=== PATIENT | female | born 1995 | race Caucasian/White ===

== ENCOUNTER 2020-03-25 06:44 | Emergency (ER) | payer MEDICAID ==
[~2020-03-25] VITALS: Ht 154.9 cm; Wt 90.0 kg
[2020-03-25 06:46] VITALS: BP 132/80
[2020-03-25] MEDS ORDERED: ONDANSETRON HCL 4MG/2ML INJ IV STA (07:16)
[2020-03-25] MEDS ORDERED: KETOROLAC 30MG/ML VIAL IV STA (07:16)
[2020-03-25 07:33] LABS: BASOPHILS % 0.9 % (0.0-2.0); EOSINOPHILS % 1.9 % (0.0-5.0); HEMATOCRIT. 39.5 % (36.0-48.0); HEMOGLOBIN. 13.6 g/dL (12.0-16.0); LYMPHOCYTES % 19.5 % (20.0-50.0); MEAN CORPUSCULAR HEMOGLOBIN 28.5 pg (28.0-32.0); MEAN CORPUSCULAR VOLUME 82.4 fL (81.0-99.0); MEAN PLATELET VOLUME 8.2 fl (7.4-10.4); MONOCYTES % 6.4 % (2.0-8.0); NEUTROPHILS % 71.3 % (40.0-76.0); PLATELET 347 x1000/uL (130-400); RED BLOOD CELL COUNT 4.79 mill/uL (4.2-5.4)
[2020-03-25 07:36] LABS: CHLORIDE 104 mEq/L (98-107)
[2020-03-25 07:43] LABS: PROTHROMBIN TIME 10.9 sec (9.6-11.0)
[2020-03-25 07:45] LABS: HCG SCREEN NEGATIVE
[2020-03-25] MEDS ORDERED: IBUP-2029 MT (08:34)
[2020-03-25] MEDS ORDERED: OXYC-100 MT (08:34)
[2020-03-25 08:46] LABS: CLARITY URINE CLEAR (CLEAR); COLOR URINE YELLOW (YELLOW); KETONES URINE NEGATIVE (NEGATIVE); LEUKOCYTE ESTERASE URINE 3+ (NEGATIVE); NITRITE URINE NEGATIVE (NEGATIVE); OCCULT BLOOD URINE NEGATIVE (NEGATIVE); PROTEIN URINE NEGATIVE (NEGATIVE); UROBILINOGEN URINE 0.2 E.U./dL (0.2-1.0)
== END 2020-03-25 08:55 | disposition home or self-care (01) ==
LOC: ER 07:39
DX: K80.20 Calculus of gallbladder without cholecystitis without obstruction (principal); E11.9 Type 2 diabetes mellitus without complications; Z88.0 Allergy status to penicillin
CPT/HCPCS: 36415; 76705; 80053; 81003; 81025; 83690; 84703; 85025; 85610; 87086; 93005; 96374; 96375; 99285; J1885; J2405

== ENCOUNTER 2024-07-23 06:03 | Emergency (ER) | payer MEDICAID ==
[~2024-07-23] VITALS: Ht 157.5 cm; Wt 83.0 kg
[~2024-07-23 06:03] MED LIST: IBUP-2029 MT; OXYC-100 MT
[2024-07-23 06:21] VITALS: O2SAT 100
[2024-07-23 07:25] LABS: BASOPHILS % 0.2 % (0.0-2.0); EOSINOPHILS % 0.8 % (0.0-5.0); HEMOGLOBIN. 13.4 g/dL (12.0-16.0); LYMPHOCYTES % 18.3 % (20.0-50.0); MEAN CORPUSCULAR HEMOGLOBIN 27.7 pg (28.0-32.0); MEAN CORPUSCULAR HGB CONC 33.5 g/dL (31.0-37.0); MEAN CORPUSCULAR VOLUME 82.5 fL (81.0-99.0); MEAN PLATELET VOLUME 7.8 fl (7.4-10.4); MONOCYTES % 6.2 % (2.0-8.0); NEUTROPHILS % 74.5 % (40.0-76.0); PLATELET 397 x1000/uL (130-400); RED BLOOD CELL COUNT 4.85 mill/uL (4.2-5.4); RED CELL DISTRIBUTION WIDTH 13.9 % (11.6-14.6); WHITE BLOOD COUNT 9.2 x1000/uL (4.5-11.0)
[2024-07-23 07:46] LABS: CHLORIDE 105 mEq/L (98-107); POTASSIUM 4.1 mEq/L (3.5-5.1); SODIUM 139 mEq/L (136-145)
[2024-07-23 07:47] LABS: CARBON DIOXIDE 28 mEq/L (21-32)
[2024-07-23 07:48] LABS: CALCIUM 9.8 mg/dL (8.7-10.4)
[2024-07-23 07:52] LABS: CREATININE 0.7 mg/dL (0.6-1.0)
[2024-07-23 07:53] LABS: GLUCOSE 116 mg/dL (70-105); UREA NITROGEN BLOOD 13 mg/dL (9-23)
[2024-07-23 12:11] LABS: HCG SCREEN NEGATIVE
[2024-07-23 12:36] LABS: CLARITY URINE CLEAR (CLEAR); COLOR URINE YELLOW (YELLOW); GLUCOSE URINE NEGATIVE (NEGATIVE); KETONES URINE 2+ (NEGATIVE); LEUKOCYTE ESTERASE URINE TRACE (NEGATIVE); NITRITE URINE NEGATIVE (NEGATIVE); OCCULT BLOOD URINE NEGATIVE (NEGATIVE); PH URINE 5.5 (4.5-8.0); PROTEIN URINE NEGATIVE (NEGATIVE); SPECIFIC GRAVITY URINE 1.014 (1.005-1.030); UROBILINOGEN URINE 0.2 E.U./dL (0.2-1.0)
[2024-07-23 12:56] LABS: BACTERIA URINE 2+; RBC URINE 0-2 /hpf (0-2); SQUAMOUS EPITHELIAL CELL URINE 1+ /lpf (RARE/1+); YEAST URINE NONE SEEN
[2024-07-23 14:11] LABS: ALANINE AMINOTRANSFERASE 51 IU/L (10-49)
[2024-07-23 14:12] LABS: ALBUMIN 4.4 g/dL (3.2-4.8); ASPARTATE AMINOTRANSFERASE 45 IU/L (<34); BILIRUBIN DIRECT 0.1 mg/dL (<=3.0); BILIRUBIN TOTAL 0.4 mg/dL (0.1-1.0); PROTEIN TOTAL 7.9 g/dL (6.0-8.3)
[2024-07-23 14:49] VITALS: BP 118/70; PULSE 64; RESP 18; TEMP 36.9; O2SAT 100
== END 2024-07-23 14:54 | disposition home or self-care (01) ==
LOC: ER 06:03
DX: R11.2 Nausea with vomiting, unspecified (principal); Z88.0 Allergy status to penicillin; Z90.49 Acquired absence of other specified parts of digestive tract
CPT/HCPCS: 36415; 71045; 80048; 80076; 81003; 81025; 84703; 85025; 99284